=== PATIENT | male | born 1965 | race American Indian/Alaskan Native ===

== ENCOUNTER 2016-08-24 17:26 | Emergency (ER) | payer BC, OTHER ==
[2016-08-24] MEDS ORDERED: Sodium Chloride 0.9% 2.5 ML Syringe FLUSH PRN (18:40)
[2016-08-24] MEDS ORDERED: Sodium Chloride 0.9% 10 ML Syringe FLUSH PRN (18:40)
[2016-08-24 19:31] LABS: CHLORIDE,CL 104 mmol/L (98-110); SODIUM,NA 139 mmol/L (136-146)
[2016-08-24] MEDS ORDERED: Iopamidol 755 Mg/ML 100 ML Bottle IVPUSH STA (19:51)
[2016-08-24] MEDS ORDERED: HYDROmorphone 1 MG/ML Syringe IVPUSH ONE (20:19)
[2016-08-24] MEDS ORDERED: Sodium Chloride 0.9% 1,000 ML IV SCH (20:30)
--- NOTE | 2016-08-24 21:10 | EDM.PDOC ---
ED HPI GENERAL MEDICAL PROBLEM - General Chief Complaint: Abdominal Pain Stated Complaint: PT HAS STOMACH PAINS Time Seen by Provider: 08/24/16 17:38 Source of Information: Reports: Patient History Limitations: Reports: No Limitations - History of Present Illness INITIAL COMMENTS - FREE TEXT/NARRATIVE: HISTORY AND PHYSICAL: History of present illness: [Patient is brought to the emergency room by his this evening. Patient complains of abdominal pain since 10 AM this morning. Is gradually worsening. He describes it as a feeling of pressure to his mid abdomen. He points to his epigastric area and mid abdomen as the source of pain. He's not taken any medications for his symptoms today. He had a normal bowel movement this morning and has been passing gas. He's had some nausea but denies any vomiting. No constipation or diarrhea. No chest pain, shortness of breath or difficulty breathing. No fever or chills. Denies a sore throat. No burning with urination or hematuria. No muscle or joint aches or pains. No weakness or rashes. He has not been ill recently. Reports a history of many abdominal surgeries including four hernia repairs, bowel obstructions and hiatal hernia.] Review of systems: As per history of present illness and below otherwise all systems reviewed and negative. Past medical history: As per history of present illness and as reviewed below otherwise noncontributory. Surgical history: As per history of present illness and as reviewed below otherwise noncontributory. Social history: No reported history of drug or alcohol abuse. Family history: As per history of present illness and as reviewed below otherwise noncontributory. Physical exam: HEENT: Atraumatic, normocephalic. Oral mucous membranes are pink and moist., throat clear, neck supple, nontender, no lymphadenopathy. Lungs: Clear to auscultation, breath sounds equal bilaterally, chest nontender. Heart: S1S2, regular rate and rhythm. No murmur gallop click or rub. Abdomen: Bowel sounds are normoactive. Abdomen is soft. Is distended and tender through the epigastric area and midline abdomen. No guarding masses or rebound. Soft, nondistended, nontender. Pelvis: Stable nontender. Genitourinary: Deferred. Rectal: Deferred. Extremities: Atraumatic, no cyanosis or edema to feet or lower legs. Neurovascular unremarkable. Neuro: Awake, alert, oriented. Motor and sensory unremarkable throughout. Exam nonfocal. Diagnostics: [CBC, CMP, UA, amylase, lipase, CT abdomen and pelvis with contrast] Therapeutics: [1 L normal saline, Dilaudid 1 mg IV] Impression: [abdominal pain, likely due to incarceration L parasagittal mid ventral abdominal wall hernia] Plan: [Discussed patient's condition with Dr. Mitul Ott, who does not believe that patient can be adequately cared for in this facility. Discussed with Dr. Jono Andrea at [facility] who agrees to accept patient in transfer at 2049. Patient will be transported by ground crew.] Definitive disposition and diagnosis as appropriate pending reevaluation and review of above. Abdominal Pain Score (Numeric/FACES): 9 - Related Data Allergies Allergy/AdvReac Type Severity Reaction Status Date / Time No Known Allergies Allergy Verified 08/24/16 18:34 Home Meds: Home Meds . [No Known Home Meds] 08/24/16 [History] Past Medical History Cardiovascular History: Reports: Hypertension Gastrointestinal History: Reports: Bowel Obstruction - Past Surgical History GI Surgical History: Reports: Hernia, Abdominal, Hernia Repair/Other Musculoskeletal Surgical History: Reports: Arthroscopic Knee Social & Family History - Tobacco Use Smoking Status *Q: Current Every Day Smoker Years of Tobacco use: 35 Packs/Tins Daily: 1 - Alcohol Use Days Per Week of Alcohol Use: 1 Number of Drinks Per Day: 6 Total Drinks Per Week: 6 - Recreational Drug Use Recreational Drug Use: No ED ROS GENERAL - Review of Systems Review Of Systems: ROS reveals no pertinent complaints other than HPI. ED EXAM, GI/ABD - Physical Exam Exam: See Below Course - Vital Signs Last Recorded V/S: Last Vital Signs Temp 97.6 F 08/24/16 20:19 Pulse 63 08/24/16 20:19 Resp 20 08/24/16 20:19 BP 190/100 H 08/24/16 20:19 Pulse Ox 97 08/24/16 20:19 - Orders/Labs/Meds Orders: Active Orders 24 hr Category Date Time Status Abdomen Pelvis w Cont [CT] Stat Exams 08/24/16 19:10 Taken Sodium Chloride 0.9% [Normal Saline] 1,000 ml Med 08/24/16 20:30 Active IV ASDIRECTED Sodium Chloride 0.9% [Saline Flush] Med 08/24/16 18:40 Active 10 ml FLUSH ASDIRECTED PRN Sodium Chloride 0.9% [Saline Flush] Med 08/24/16 18:40 Active 2.5 ml FLUSH ASDIRECTED PRN Saline Lock Insert [OM.PC] Stat Oth 08/24/16 18:40 Ordered Medication Orders Sodium Chloride (Normal Saline) 1,000 mls @ 999 mls/hr IV ASDIRECTED VIKI Last Admin: 08/24/16 20:26 Dose: 999 mls/hr Sodium Chloride (Saline Flush) 10 ml FLUSH ASDIRECTED PRN PRN Reason: Keep Vein Open Sodium Chloride (Saline Flush) 2.5 ml FLUSH ASDIRECTED PRN PRN Reason: Keep Vein Open Labs: Laboratory Tests 08/24/16 08/24/16 08/24/16 Range/Units 18:50 19:00 19:00 WBC 16.59 H (4.0-11.0) K/uL RBC 5.43 (4.50-5.90) M/uL Hgb 16.5 (13.0-17.0) g/dL Hct 49.5 (38.0-50.0) % MCV 91.2 (80.0-98.0) fL MCH 30.4 (27.0-32.0) pg MCHC 33.3 (31.0-37.0) g/dL RDW Std Deviation 45.3 (28.0-62.0) fl RDW Coeff of Chris 14 (11.0-15.0) % Plt Count 212 (150-400) K/uL MPV 10.90 (7.40-12.00) fL Neut % (Auto) 79.6 (48.0-80.0) % Lymph % (Auto) 13.1 L (16.0-40.0) % [place] % (Auto) 6.6 (0.0-15.0) % Eos % (Auto) 0.5 (0.0-7.0) % Baso % (Auto) 0.2 (0.0-1.5) % Neut # (Auto) 13.2 H (1.4-5.7) K/uL Lymph # (Auto) 2.2 (0.6-2.4) K/uL [place] # (Auto) 1.1 H (0.0-0.8) K/uL Eos # (Auto) 0.1 (0.0-0.7) K/uL Baso # (Auto) 0.0 (0.0-0.1) K/uL Nucleated RBC % 0.0 /100WBC Nucleated RBCs # 0 K/uL Lactate (0.20-2.00) mmol/L Sodium 139 (136-146) mmol/L Potassium 4.6 (3.5-5.1) mmol/L Chloride 104 (98-110) mmol/L Carbon Dioxide 25 (21-31) mmol/L BUN 14 (6.0-23.0) mg/dL Creatinine 0.9 (0.6-1.5) mg/dL Est Cr Clr Drug Dosing 102.52 mL/min Estimated GFR (MDRD) > 60.0 ml/min Glucose 151 H (60-110) mg/dL Calcium 9.6 (8.8-10.8) mg/dL Total Bilirubin 0.4 (0.1-1.5) mg/dL AST 15 (5-40) IU/L ALT 27 (8-54) IU/L Alkaline Phosphatase 45 (40-150) Total Protein 7.3 (6.0-8.0) g/dL Albumin 4.4 (3.5-5.0) g/dL Globulin 2.9 (2.0-3.5) g/dL Albumin/Globulin Ratio 1.5 (1.3-2.8) Amylase 30 (10-90) U/L Lipase 19 (7-80) U/L Urine Color YELLOW Urine Appearance CLEAR Urine pH 5.5 (5.0-8.0) Ur Specific [place] 1.015 (1.001-1.035) Urine Protein NEGATIVE (NEGATIVE) mg/dL Urine Glucose (UA) NEGATIVE (NEGATIVE) mg/dL Urine Ketones NEGATIVE (NEGATIVE) mg/dL Urine Occult Blood NEGATIVE (NEGATIVE) Urine Nitrite NEGATIVE (NEGATIVE) Urine Bilirubin NEGATIVE (NEGATIVE) Urine Urobilinogen 0.2 (<2.0) EU/dL Ur Leukocyte Esterase NEGATIVE (NEGATIVE) Urine RBC 0-1 (0-2/HPF) Urine WBC 0-2 (0-5/HPF) Ur Epithelial Cells FEW (NONE-FEW) Urine Bacteria RARE (NEGATIVE) 08/24/16 Range/Units 19:05 WBC (4.0-11.0) K/uL RBC (4.50-5.90) M/uL Hgb (13.0-17.0) g/dL Hct (38.0-50.0) % MCV (80.0-98.0) fL MCH (27.0-32.0) pg MCHC (31.0-37.0) g/dL RDW Std Deviation (28.0-62.0) fl RDW Coeff of Chris (11.0-15.0) % Plt Count (150-400) K/uL MPV (7.40-12.00) fL Neut % (Auto) (48.0-80.0) % Lymph % (Auto) (16.0-40.0) % [place] % (Auto) (0.0-15.0) % Eos % (Auto) (0.0-7.0) % Baso % (Auto) (0.0-1.5) % Neut # (Auto) (1.4-5.7) K/uL Lymph # (Auto) (0.6-2.4) K/uL [place] # (Auto) (0.0-0.8) K/uL Eos # (Auto) (0.0-0.7) K/uL Baso # (Auto) (0.0-0.1) K/uL Nucleated RBC % /100WBC Nucleated RBCs # K/uL Lactate 1.3 (0.20-2.00) mmol/L Sodium (136-146) mmol/L Potassium (3.5-5.1) mmol/L Chloride (98-110) mmol/L Carbon Dioxide (21-31) mmol/L BUN (6.0-23.0) mg/dL Creatinine (0.6-1.5) mg/dL Est Cr Clr Drug Dosing mL/min Estimated GFR (MDRD) ml/min Glucose (60-110) mg/dL Calcium (8.8-10.8) mg/dL Total Bilirubin (0.1-1.5) mg/dL AST (5-40) IU/L ALT (8-54) IU/L Alkaline Phosphatase (40-150) Total Protein (6.0-8.0) g/dL Albumin (3.5-5.0) g/dL Globulin (2.0-3.5) g/dL Albumin/Globulin Ratio (1.3-2.8) Amylase (10-90) U/L Lipase (7-80) U/L Urine Color Urine Appearance Urine pH (5.0-8.0) Ur Specific [place] (1.001-1.035) Urine Protein (NEGATIVE) mg/dL Urine Glucose (UA) (NEGATIVE) mg/dL Urine Ketones (NEGATIVE) mg/dL Urine Occult Blood (NEGATIVE) Urine Nitrite (NEGATIVE) Urine Bilirubin (NEGATIVE) Urine Urobilinogen (<2.0) EU/dL Ur Leukocyte Esterase (NEGATIVE) Urine RBC (0-2/HPF) Urine WBC (0-5/HPF) Ur Epithelial Cells (NONE-FEW) Urine Bacteria (NEGATIVE) Meds: Medications Generic Name Dose Route Start Last Admin Trade Name Zainq PRN Reason Stop Dose Admin Sodium Chloride 1,000 mls @ 999 mls/hr 08/24/16 20:30 08/24/16 20:26 Normal Saline IV 999 mls/hr ASDIRECTED VIKI Administration Sodium Chloride 10 ml 08/24/16 18:40 Saline Flush FLUSH ASDIRECTED PRN Keep Vein Open Sodium Chloride 2.5 ml 08/24/16 18:40 Saline Flush FLUSH ASDIRECTED PRN Keep Vein Open Discontinued Medications Generic Name Dose Route Start Last Admin Trade Name Freteto PRN Reason Stop Dose Admin Hydromorphone HCl 1 mg 08/24/16 20:19 08/24/16 20:25 Dilaudid IVPUSH 08/24/16 20:20 1 mg ONETIME ONE Administration Departure - Departure Time of Disposition: 21:30 Disposition: DC/Tfer to Acute Hospital 02 Condition: fair Clinical Impression: Abdominal pain Qualifiers: Abdominal location: upper abdomen, unspecified Qualified Code(s): R10.10 - Upper abdominal pain, unspecified - Discharge Information Forms: ED Department Discharge - My Orders Last 24 Hours: My Active Orders 08/24/16 18:40 Sodium Chloride 0.9% [Saline Flush] 10 ml FLUSH ASDIRECTED PRN Sodium Chloride 0.9% [Saline Flush] 2.5 ml FLUSH ASDIRECTED PRN Saline Lock Insert [OM.PC] Stat 08/24/16 19:10 Abdomen Pelvis w Cont [CT] Stat 08/24/16 20:30 Sodium Chloride 0.9% [Normal Saline] 1,000 ml IV ASDIRECTED - Assessment/Plan Last 24 Hours: My Active Orders 08/24/16 18:40 Sodium Chloride 0.9% [Saline Flush] 10 ml FLUSH ASDIRECTED PRN Sodium Chloride 0.9% [Saline Flush] 2.5 ml FLUSH ASDIRECTED PRN Saline Lock Insert [OM.PC] Stat 08/24/16 19:10 Abdomen Pelvis w Cont [CT] Stat 08/24/16 20:30 Sodium Chloride 0.9% [Normal Saline] 1,000 ml IV ASDIRECTED
[2016-08-24 21:56] VITALS: BP 160/90
--- NOTE | 2016-08-25 10:31 | CT ---
EXAM DATE: 08/24/16 PATIENT'S AGE: 50 Patient: YAJAIRA CACERES Facility: [place], [place] Site . Site : 1965 Study: CT Abdomen/Pelvis [id number]/[id number] 8:12:31 PM Ordering Physician: Sanjay Alvarez Final Report: INDICATION: Upper abdominal pain, nausea and vomiting. TECHNIQUE: CT abdomen and pelvis acquired with 100 cc Isovue 370 IV contrast. COMPARISON: None FINDINGS: The exam is limited due to artifact from large patient body habitus. Lower chest: Coronary artery calcifications. Liver: Hepatic steatosis. Spleen: Unremarkable. Pancreas: Unremarkable. Gallbladder and bile ducts: Unremarkable. Adrenal glands: Unremarkable. Kidneys: Unremarkable. Vascular structures: Unremarkable. Lymph nodes: Unremarkable. GI tract: Wide necked upper abdominal ventral hernia containing portions of the distal stomach and normal-appearing bowel loops. Right lower abdomen parasagittal ventral hernia containing a loop of normal-appearing colon. There is also a left parasagittal ventral hernia in the mid abdomen which contains a loop of normal appearing small bowel, best seen on image 100 series 3 and. There are adjacent loops of mildly dilated small bowel, reaching a maximum diameter 3.3 cm. Debris is seen within some of the bowel loops. No pneumatosis or fat stranding around the bowel. There is a 2.1 x 2.5 centimeter poorly defined soft tissue density within the mesenteric fat in this region, best seen on image 76 of series 3. Pelvic Organs: Unremarkable. Bones: Unremarkable for age. IMPRESSION: Limited exam due to patient body habitus. Loops of dilated small bowel, possibly secondary to incarceration in a left parasagittal mid ventral abdominal wall hernia. Correlation with focal pain or tenderness at the site of the hernia is needed. No free air or pneumatosis. Ill-defined soft tissue density within the left mid abdominal mesentery of unknown etiology. Wide necked upper abdominal ventral hernia and right parasagittal lower abdominal wall ventral hernia. Coronary artery disease. Hepatic steatosis. Dictated by Rachel Pelayo MD @ Aug 24 2016 8:25PM (Electronic Signature) Report Signed by Proxy. [facility]
== END 2016-08-24 21:50 ==
LOC: MW.ED 17:26
DX: R10.13 Epigastric pain (principal); I10 Essential (primary) hypertension; F17.210 Nicotine dependence, cigarettes, uncomplicated
CPT/HCPCS: 36415; 74177; 80053; 81001; 82150; 83605; 83690; 85025; 96361; 96374; 99285; J1170; J7040; Q9967

== ENCOUNTER 2019-03-28 18:15 | Emergency (ER) | payer OTHER ==
[2019-03-28] MEDS ORDERED: Acetaminophen/HYDROcodone 325-5 MG Tab PO ONE (18:37)
--- NOTE | 2019-03-28 19:00 | EDM.PDOC ---
ED HPI GENERAL MEDICAL PROBLEM - General Chief Complaint: Skin Complaint Stated Complaint: BRUISE ON RIGHT LEG Time Seen by Provider: 03/28/19 18:32 Source of Information: Reports: Patient History Limitations: Reports: No Limitations - History of Present Illness INITIAL COMMENTS - FREE TEXT/NARRATIVE: HISTORY AND PHYSICAL: History of present illness: Patient is a 53-year-old male who presents to the emergency room with complaints of right domingo pain. 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 He did have an abrasion which since has become tender to palpation and has surrounding erythema. Patient denies other extremity involvement. Denies any numbness or tingling of the affected extremity. Denies any fever, chills, headache, change in vision, syncope or near syncope. Denies any chest pain, back pain, shortness of breath or cough. Denies any GI or symptoms. Patient has been eating and drinking appropriately. Review of systems: As per history of present illness and below otherwise all systems reviewed and negative. Past medical history: As per history of present illness and as reviewed below otherwise noncontributory. Surgical history: As per history of present illness and as reviewed below otherwise noncontributory. Social history: See social history for further information Family history: As per history of present illness and as reviewed below otherwise noncontributory. Physical exam: General: Well-developed and well-nourished 53-year-old male. Alert and oriented. Nontoxic-appearing and in no acute distress. HEENT: Atraumatic, normocephalic, pupils equal and reactive bilaterally, negative for conjunctival pallor or scleral icterus, mucous membranes moist, trachea midline. No drooling or trismus noted. No meningeal signs. No hot potato voice noted. Lungs: Clear to auscultation, breath sounds equal bilaterally, chest nontender. Heart: S1S2, regular rate and rhythm without overt murmur Abdomen: Soft, obese, nontender. Skin: Healing abrasion noted to the right anterior mid domingo. Surrounding diffuse erythema approximately 1 inch around the abrasion site. Otherwise remaining skin is intact, warm, dry. No lesions or rashes noted. Extremities: See skin for details, tenderness with palpation at the site of the abrasion, ambulatory, weightbearing, moves all extremities per self without difficulty or deficits, negative for cords or calf pain. Strong pedal pulse. Capillary refill less than 3 seconds. Neurovascular unremarkable. Neuro: Awake, alert, oriented. Cranial nerves II through XII unremarkable. Cerebellum unremarkable. Motor and sensory unremarkable throughout. Exam nonfocal. Notes: X-ray shows mild soft tissue swelling of the anterior mid domingo consistent with cellulitis or hematoma. No gas or radiopaque foreign body noted. Medication education and supportive care measures were reviewed and discussed. Signs and symptoms that would prompt him to return to the ED were reviewed and discussed. Patient voices understanding and is agreeable to plan of care. Denies any further questions or concerns at this time. Diagnostics: X-ray Therapeutics: [place] Prescription: Keflex Impression: Cellulitis, right anterior domingo Plan: 1. Rest, ice and elevate extremity. Keep the area clean and dry. Wash gently twice daily with mild soap and water. Continue to monitor site for signs of improvement. If area does not improve - you need to follow up with your primary care provider. 2. Tylenol and/or Ibuprofen for pain. Take the antibiotic as prescribed. 3. Follow up with your primary care provider. Return to the ED as needed as discussed. Definitive disposition and diagnosis as appropriate pending reevaluation and review of above. right lower leg Pain Score (Numeric/FACES): 6 - Related Data Allergies Allergy/AdvReac Type Severity Reaction Status Date / Time morphine Allergy Itching Verified 03/28/19 18:31 Home Meds: Home Meds Valsartan 0 mg PO DAILY 11/09/17 [History] amLODIPine [Norvasc] 0 mg PO DAILY 11/09/17 [History] cephALEXin [Keflex] 500 mg PO Q8H 7 Days #21 cap 03/28/19 [Rx] Past Medical History Cardiovascular History: Reports: Hypertension Gastrointestinal History: Reports: Bowel Obstruction Endocrine/Metabolic History: Reports: Obesity/BMI 30+ - Past Surgical History GI Surgical History: Reports: Hernia, Abdominal, Hernia Repair/Other Musculoskeletal Surgical History: Reports: Arthroscopic Knee Social & Family History - Family History Family Medical History: Noncontributory - Tobacco Use Smoking Status *Q: Former Smoker Used Tobacco, but Quit: Yes Month/Year Tobacco Last Used: 2016 - Recreational Drug Use Recreational Drug Use: No ED ROS GENERAL - Review of Systems Review Of Systems: Comprehensive ROS is negative, except as noted in HPI. ED EXAM, SKIN/RASH Exam: See Below (See dictation) Course - Vital Signs Last Recorded V/S: Last Vital Signs Temp 95.6 F 03/28/19 18:29 Pulse 101 H 03/28/19 18:29 Resp 18 03/28/19 18:29 BP 159/95 H 03/28/19 18:29 Pulse Ox 95 03/28/19 18:29 - Orders/Labs/Meds Meds: Medications Discontinued Medications Generic Name Dose Route Start Last Admin Trade Name Maurice PRN Reason Stop Dose Admin Hydrocodone Bitart/Acetaminophen 1 tab 03/28/19 18:37 03/28/19 18:50 [place] 325-5 Mg PO 03/28/19 18:38 1 tab ONETIME ONE Administration Departure - Departure Time of Disposition: 19:01 Disposition: Home, Self-Care 01 Clinical Impression: Cellulitis Qualifiers: Site of cellulitis: extremity Site of cellulitis of extremity: lower extremity Laterality: left Qualified Code(s): L03.116 - Cellulitis of left lower limb - Discharge Information Prescriptions: cephALEXin [Keflex] 500 mg PO Q8H 7 Days #21 cap Instructions: Cellulitis, Adult, [id number] Referrals: PCP,None [Primary Care Provider] - Forms: ED Department Discharge Additional Instructions: The following information is given to patients seen in the emergency department who are being discharged to home. This information is to outline your options for follow-up care. We provide all patients seen in our emergency department with a follow-up referral. The need for follow-up, as well as the timing and circumstances, are variable depending upon the specifics of your emergency department visit. If you don't have a primary care physician on staff, we will provide you with a referral. We always advise you to contact your personal physician following an emergency department visit to inform them of the circumstance of the visit and for follow-up with them and/or the need for any referrals to a consulting specialist. The emergency department will also refer you to a specialist when appropriate. This referral assures that you have the opportunity for follow-up care with a specialist. All of these measure are taken in an effort to provide you with optimal care, which includes your follow-up. Under all circumstances we always encourage you to contact your private physician who remains a resource for coordinating your care. When calling for follow-up care, please make the office aware that this follow-up is from your recent emergency room visit. If for any reason you are refused follow-up, please contact the [facility] Emergency Department at and asked to speak to the emergency department charge nurse. [facility] Primary Care [address] [place] [address] [facility] [address] [place] [id number] 1. Rest, ice and elevate extremity. Keep the area clean and dry. Wash gently twice daily with mild soap and water. Continue to monitor site for signs of improvement. If area does not improve - you need to follow up with your primary care provider. 2. Tylenol and/or Ibuprofen for pain. Take the antibiotic as directed. 3. Follow up with your primary care provider. Return to the ED as needed as discussed. Sepsis Event Note - Evaluation Sepsis Screening Result: No Definite Risk - Focused Exam Vital Signs: Vital Signs Temp Pulse Resp BP Pulse Ox 03/28/19 18:29 95.6 F 101 H 18 159/95 H 95 Date Exam was Performed: 03/28/19 Time Exam was Performed: 19:23
--- NOTE | 2019-03-28 19:18 | CR ---
INDICATION: Pain after striking the domingo on a truck step. Site is now painful, swollen, red. COMPARISON: None available. TECHNIQUE: AP and lateral views of the right tibia and fibula were obtained. FINDINGS: There is mild soft tissue swelling and edema in the anterior mid domingo, with no sign of any radiopaque foreign body. The findings are consistent with cellulitis or soft tissue hematoma. There are multiple rounded calcifications scattered throughout the anterior domingo extending from the knees through the mid domingo, consistent with multiple phleboliths. There is no sign of fracture, dislocation, or joint effusion. There is no sign of any gas in the soft tissues. There is no sign of any radiopaque foreign bodies. There is mild primary osteoarthritis of the patellofemoral joint compartment with mild superior and inferior osteophyte formation. The medial and lateral joint compartments are normal in height, but there is mild lateral marginal osteophyte formation consistent with minimal primary osteoarthritis. There is normal appearance of the ankle. IMPRESSION: Mild soft tissue swelling of the anterior mid domingo consistent with cellulitis or hematoma. No sign of any radiopaque foreign body or gas in the soft tissues. Multiple phleboliths seen throughout the anterior superior domingo. 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 Dictated by Emeterio Vizcaino MD @ Mar 28 2019 7:15PM Signed by Dr. Emeterio Vizcaino @ Mar 28 2019 7:17PM
[2019-03-28 23:12] VITALS: BP 175/88; PULSE 75
== END 2019-03-28 19:40 | disposition home or self-care (01) ==
LOC: MW.ED 18:15
DX: L03.116 Cellulitis of left lower limb (principal); E66.9 Obesity, unspecified; Z68.42 Body mass index [BMI] 45.0-49.9, adult; I10 Essential (primary) hypertension; Z79.899 Other long term (current) drug therapy; Z88.5 Allergy status to narcotic agent; Z87.891 Personal history of nicotine dependence
CPT/HCPCS: 73590; 99283; A9270

== ENCOUNTER 2020-03-27 10:35 | Emergency (ER) | payer OTHER ==
--- NOTE | 2020-03-27 10:53 | EDM.PDOC ---
ED HPI GENERAL MEDICAL PROBLEM - General Chief Complaint: Abdominal Pain Stated Complaint: EMS ARRIVAL Time Seen by Provider: 03/27/20 10:41 Source of Information: Reports: Patient History Limitations: Reports: No Limitations - History of Present Illness INITIAL COMMENTS - FREE TEXT/NARRATIVE: HISTORY AND PHYSICAL: History of present illness: Patient is a 54-year-old male who presents to the emergency room with complaints of drainage from the DEANA drain site. On Wednesday he was at [facility] and had an abscess drained then 2 DEANA drains placed to his abdomen. He states he was supposed to go to the clinic this morning but felt he needed to come to the emergency room as he has not had much drainage coming from the DEANA drains. Instead he feels that fluid is draining around the DEANA tubing at the abdomen wall. Patient denies any fever, chills, headache, change in vision, syncope or near syncope. Denies any chest pain, back pain, shortness of breath or cough. Denies any abdominal pain, nausea, vomiting, diarrhea, constipation or dysuria. Has not noted any blood in urine or stool. Patient has been eating and drinking appropriately. Review of systems: As per history of present illness and below otherwise all systems reviewed and negative. Past medical history: As per history of present illness and as reviewed below otherwise noncontributory. Surgical history: As per history of present illness and as reviewed below otherwise noncontributory. Social history: See social history for further information Family history: As per history of present illness and as reviewed below otherwise noncontributory. Physical exam: General: Well developed and well nourished 54 year old male. Alert and orientated x 3. Nontoxic in appearance and in no acute distress. Vital signs are stable and have been reviewed by me. Nursing notes were reviewed. HEENT: Atraumatic, normocephalic, pupils equal and reactive bilaterally, negative for conjunctival pallor or scleral icterus, mucous membranes moist, TMs normal bilaterally, throat clear, neck supple, nontender, trachea midline. No drooling or trismus noted. No meningeal signs. No hot potato voice noted. Lungs: Clear to auscultation, breath sounds equal bilaterally, chest nontender. Normal work of breathing, no accessory muscles used. Heart: S1S2, regular rate and rhythm without overt murmur Abdomen: Soft, morbid obesity, nontender. 2 catheters coming out from the abdomen, drainage coming from around the catheter sites. Negative for masses or costovertebral tenderness. Pelvis: Stable nontender. Skin: 2 catheters connected to DEANA drains are noted to the abdomen. The skin surrounding the DEANA catheter are intact, no erythema and no fluctuance directly behind the catheter site. There is drainage coming from around the catheter sites, dark brown liquid. Remaining skin is intact, warm, dry. No lesions or rashes noted. Hematologic: No petechiae or purpra. Mucosa appropriate color and normal nail bed color and refill. Extremities: Atraumatic, moves all extremities per self without difficulty or deficits, negative for cords or calf pain. Neurovascular unremarkable. Neuro: Awake, alert, oriented. Cranial nerves II through XII unremarkable. Cerebellum unremarkable. Motor and sensory unremarkable throughout. Exam nonfocal. Psychiatric: Mood and affect are appropriate. Normal thought process. Answering questions appropriately. Notes: 03/13/2020: CT abdomen and pelvis very large loculated, peripherally enhancing collection in the anterior abdominal subcutaneous fat, measuring up to 42 cm. Correlate with aspiration to exclude an abscess. (Ordered by Dr Mueller and patient was referred to outpatient surgery for IR/drainage). According to [facility] the patient had 1 liter of drainage aspirated from the abscess site/abdominal wall. 1200: Spoke with Dr. Estrada at [facility]. He states he did see this patient with Dr. Lin, he would like the DEANA tubing flushed/irrigated and to perform the CT of the abdomen and pelvis. Currently the CT machine that can withhold his weight is currently being worked on. This will not be available until 1400, both patient and surgeon are aware of that. Dr. Estrada also states that the patient is supposed to's follow-up in [facility] with Dr. Cruz for surgery. The surgeon at [facility] wanted the DEANA flushed and irrigated. We were able to do this without any difficulty. DEANA #1 has drained 300 mL, DEANA #2 has drained 30 mL. When patient repositioned at the bedside approximately 500 mL of the brown fluid drained around the DEANA insertion site tubing. Patient states "this is what was happening at home". Our CT machine continues to be out of use. I called and respoke with Dr Estrada about the patient's status and continued drainage fr om around the catheter site. I agree the patient is nontoxic in appearance and his vital signs are stable. Patient has been very comfortable and has had no complaints while here in the emergency room. Patient will be seen tomorrow at [address] Hall (surgeon associate) who had seen the patient over the weekend. I have talked with the patient about today's findings, in addition to providing sp ecific details for plan of care. Reassessment at the time of disposition demonstrates that the patient is in no acute distress. The patient is stable for discharge, counseling was provided and we discussed in great detail signs and symptoms that would prompt them to return to the Emergency Department. Medication, follow up and supportive care measures were reviewed and discussed. Voices understanding and is agreeable to plan of care. Denies any further questions or concerns at this time. Diagnostics: CBC, CMP, Blood Culture, CT abd/pelvis Therapeutics: Irrigation, Impression: Abdominal drainage Plan: 1. I spoke with Dr Estrada (associate with Dr Herrera) - Dr Hall wants to see you tomorrow 2pm at the [facility] to adjust your drains. 2. Continue monitoring your DEANA drain and emptying routinely. 3. Continue taking your home medications as directed. 4. If at any time your symptoms worsen or new symptoms develop please return to the emergency room for reevaluation. Definitive disposition and diagnosis as appropriate pending reevaluation and review of above. - Related Data Allergies Allergy/AdvReac Type Severity Reaction Status Date / Time morphine Allergy Itching Verified 03/27/20 10:45 Home Meds: Home Meds Valsartan 0 mg PO DAILY 11/09/17 [History] amLODIPine [Norvasc] 0 mg PO DAILY 11/09/17 [History] Rosuvastatin [Crestor] 0 mg PO DAILY 03/27/20 [History] Past Medical History Cardiovascular History: Reports: Hypertension Gastrointestinal History: Reports: Bowel Obstruction Endocrine/Metabolic History: Reports: Obesity/BMI 30+ - Past Surgical History GI Surgical History: Reports: Hernia, Abdominal, Hernia Repair/Other Musculoskeletal Surgical History: Reports: Arthroscopic Knee Social & Family History - Family History Family Medical History: No Pertinent Family History - Tobacco Use Tobacco Use Status *Q: Never Tobacco User - Recreational Drug Use Recreational Drug Use: No ED ROS GENERAL - Review of Systems Review Of Systems: Comprehensive ROS is negative, except as noted in HPI. ED EXAM, GI/ABD - Physical Exam Exam: See Below (See dictation) Course - Vital Signs Last Recorded V/S: Last Vital Signs Temp 96.7 F L 03/27/20 10:40 Pulse 67 03/27/20 14:47 Resp 16 03/27/20 14:47 BP 132/64 03/27/20 14:47 Pulse Ox 95 03/27/20 14:47 - Orders/Labs/Meds Orders: Active Orders 24 hr Category Date Time Status CULTURE BLOOD [BC] Stat Lab 03/27/20 11:30 Received CULTURE BLOOD [BC] Stat Lab 03/27/20 12:03 Received Blood Culture x2 Reflex Set [OM.PC] Stat Oth 03/27/20 11:04 Ordered Labs: Laboratory Tests 03/27/20 03/27/20 03/27/20 Range/Units 11:30 11:30 11:30 WBC 9.36 (4.0-11.0) K/uL RBC 4.45 L (4.50-5.90) M/uL Hgb 12.9 L (13.0-17.0) g/dL Hct 40.4 (38.0-50.0) % MCV 90.8 (80.0-98.0) fL MCH 29.0 (27.0-32.0) pg MCHC 31.9 (31.0-37.0) g/dL RDW Std Deviation 43.8 (28.0-62.0) fl RDW Coeff of Chris 13 (11.0-15.0) % Plt Count 536 H (150-400) K/uL MPV 9.20 (7.40-12.00) fL Neut % (Auto) 68.0 (48.0-80.0) % Lymph % (Auto) 18.7 (16.0-40.0) % Otoe % (Auto) 12.1 (0.0-15.0) % Eos % (Auto) 0.9 (0.0-7.0) % Baso % (Auto) 0.3 (0.0-1.5) % Neut # (Auto) 6.4 H (1.4-5.7) K/uL Lymph # (Auto) 1.8 (0.6-2.4) K/uL Otoe # (Auto) 1.1 H (0.0-0.8) K/uL Eos # (Auto) 0.1 (0.0-0.7) K/uL Baso # (Auto) 0.0 (0.0-0.1) K/uL Nucleated RBC % 0.0 /100WBC Nucleated RBCs # 0 K/uL Lactate 1.2 (0.20-2.00) mmol/L Sodium 137 (136-148) mmol/L Potassium 4.2 (3.5-5.1) mmol/L Chloride 100 (98-107) mmol/L Carbon Dioxide 25.9 (21.0-32.0) mmol/L BUN 7 (7.0-18.0) mg/dL Creatinine 0.9 (0.8-1.3) mg/dL Est Cr Clr Drug Dosing 98.01 mL/min Estimated GFR (MDRD) > 60.0 ml/min Glucose 122 H (74-106) mg/dL Calcium 9.1 (8.5-10.1) mg/dL Total Bilirubin 0.3 (0.2-1.0) mg/dL AST 17 (15-37) IU/L ALT 23 (14-63) IU/L Alkaline Phosphatase 43 L (46-116) U/L Total Protein 6.9 (6.4-8.2) g/dL Albumin 2.3 L (3.4-5.0) g/dL Globulin 4.6 H (2.6-4.0) g/dL Albumin/Globulin Ratio 0.5 L (0.9-1.6) Urine Color Urine Appearance Urine pH (5.0-8.0) Ur Specific Bradford (1.001-1.035) Urine Protein (NEGATIVE) mg/dL Urine Glucose (UA) (NEGATIVE) mg/dL Urine Ketones (NEGATIVE) mg/dL Urine Occult Blood (NEGATIVE) Urine Nitrite (NEGATIVE) Urine Bilirubin (NEGATIVE) Urine Urobilinogen (<2.0) EU/dL Ur Leukocyte Esterase (NEGATIVE) 03/27/20 Range/Units 11:50 WBC (4.0-11.0) K/uL RBC (4.50-5.90) M/uL Hgb (13.0-17.0) g/dL Hct (38.0-50.0) % MCV (80.0-98.0) fL MCH (27.0-32.0) pg MCHC (31.0-37.0) g/dL RDW Std Deviation (28.0-62.0) fl RDW Coeff of Chris (11.0-15.0) % Plt Count (150-400) K/uL MPV (7.40-12.00) fL Neut % (Auto) (48.0-80.0) % Lymph % (Auto) (16.0-40.0) % Otoe % (Auto) (0.0-15.0) % Eos % (Auto) (0.0-7.0) % Baso % (Auto) (0.0-1.5) % Neut # (Auto) (1.4-5.7) K/uL Lymph # (Auto) (0.6-2.4) K/uL Otoe # (Auto) (0.0-0.8) K/uL Eos # (Auto) (0.0-0.7) K/uL Baso # (Auto) (0.0-0.1) K/uL Nucleated RBC % /100WBC Nucleated RBCs # K/uL Lactate (0.20-2.00) mmol/L Sodium (136-148) mmol/L Potassium (3.5-5.1) mmol/L Chloride (98-107) mmol/L Carbon Dioxide (21.0-32.0) mmol/L BUN (7.0-18.0) mg/dL Creatinine (0.8-1.3) mg/dL Est Cr Clr Drug Dosing mL/min Estimated GFR (MDRD) ml/min Glucose (74-106) mg/dL Calcium (8.5-10.1) mg/dL Total Bilirubin (0.2-1.0) mg/dL AST (15-37) IU/L ALT (14-63) IU/L Alkaline Phosphatase (46-116) U/L Total Protein (6.4-8.2) g/dL Albumin (3.4-5.0) g/dL Globulin (2.6-4.0) g/dL Albumin/Globulin Ratio (0.9-1.6) Urine Color YELLOW Urine Appearance CLEAR Urine pH 7.5 (5.0-8.0) Ur Specific Bradford 1.020 (1.001-1.035) Urine Protein NEGATIVE (NEGATIVE) mg/dL Urine Glucose (UA) NEGATIVE (NEGATIVE) mg/dL Urine Ketones NEGATIVE (NEGATIVE) mg/dL Urine Occult Blood NEGATIVE (NEGATIVE) Urine Nitrite NEGATIVE (NEGATIVE) Urine Bilirubin NEGATIVE (NEGATIVE) Urine Urobilinogen 1.0 (<2.0) EU/dL Ur Leukocyte Esterase NEGATIVE (NEGATIVE) Departure - Departure Time of Disposition: 14:40 Disposition: Home, Self-Care 01 Clinical Impression: Drainage from surgical wound - Discharge Information Instructions: Abdominal Pain, Adult, [id number] Referrals: Yony Mueller MD [Primary Care Provider] - Forms: ED Department Discharge Additional Instructions: The following information is given to patients seen in the emergency department who are being discharged to home. This information is to outline your options for follow-up care. We provide all patients seen in our emergency department with a follow-up referral. The need for follow-up, as well as the timing and circumstances, are variable depending upon the specifics of your emergency department visit. If you don't have a primary care physician on staff, we will provide you with a referral. We always advise you to contact your personal physician following an emergency department visit to inform them of the circumstance of the visit and for follow-up with them and/or the need for any referrals to a consulting specialist. The emergency department will also refer you to a specialist when appropriate. This referral assures that you have the opportunity for follow-up care with a specialist. All of these measure are taken in an effort to provide you with optimal care, which includes your follow-up. Under all circumstances we always encourage you to contact your private physician who remains a resource for coordinating your care. When calling for follow-up care, please make the office aware that this follow-up is from your recent emergency room visit. If for any reason you are refused follow-up, please contact the [facility] Emergency Department at and asked to speak to the emergency department charge nurse. Martita Murphy [address] VORA Thank you for choosing the [facility] emergency department in [place] for your medical needs today. It was a pleasure caring for you. Today you were seen in the emergency department for drainage around the DEANA site. 1. I spoke with Dr Estrada (associate with Dr Herrera) - Dr Hall wants to see you tomorrow 2pm at the [facility] to adjust your drains. 2. Continue monitoring your DEANA drain and emptying routinely. 3. Continue taking your home medications as directed. 4. If at any time your symptoms worsen or new symptoms develop please return to the emergency room for reevaluation. Sepsis Event Note (ED) - Evaluation Sepsis Screening Result: No Definite Risk - Focused Exam Vital Signs: Vital Signs Temp Pulse Resp BP Pulse Ox 03/27/20 14:47 67 16 132/64 95 03/27/20 13:45 70 18 136/72 94 L 03/27/20 12:44 75 16 127/67 95 03/27/20 11:53 76 18 166/79 H 95 03/27/20 10:40 96.7 F L 84 20 148/68 H 96 - My Orders Last 24 Hours: My Active Orders 03/27/20 11:04 Blood Culture x2 Reflex Set [OM.PC] Stat 03/27/20 11:30 CULTURE BLOOD [BC] Stat 03/27/20 12:03 CULTURE BLOOD [BC] Stat - Assessment/Plan Last 24 Hours: My Active Orders 03/27/20 11:04 Blood Culture x2 Reflex Set [OM.PC] Stat 03/27/20 11:30 CULTURE BLOOD [BC] Stat 03/27/20 12:03 CULTURE BLOOD [BC] Stat
[2020-03-27 12:21] LABS: BLOOD UREA NITROGEN,BUN 7 mg/dL (7.0-18.0); CARBON DIOXIDE,CO2 25.9 mmol/L (21.0-32.0); CHLORIDE,CL 100 mmol/L (98-107); GLUCOSE RANDOM 122 mg/dL (74-106); POTASSIUM,K 4.2 mmol/L (3.5-5.1); SODIUM,NA 137 mmol/L (136-148)
[2020-03-27 14:55] VITALS: BP 132/64; PULSE 67
== END 2020-03-27 14:56 | disposition home or self-care (01) ==
LOC: MW.ED 10:35
DX: T81.89XA Other complications of procedures, not elsewhere classified, initial encounter (principal); I10 Essential (primary) hypertension; E66.01 Morbid (severe) obesity due to excess calories; Z68.44 Body mass index [BMI] 60.0-69.9, adult; Z88.5 Allergy status to narcotic agent; Z79.899 Other long term (current) drug therapy
CPT/HCPCS: 80053; 81003; 83605; 85025; 87040; 99283